=== PATIENT | male | born 1960 | race Caucasian/White ===

== ENCOUNTER 2020-02-08 05:26 | Day surgery (SDC) | payer BC ==
[~2020-02-08] VITALS: Ht 182.9 cm; Wt 75.0 kg
[2020-02-08 06:35] VITALS: BP 132/93; PULSE 67; TEMP 98.9
[2020-02-08 10:10] VITALS: BP 152/79; PULSE 72; TEMP 97.9
--- NOTE | 2020-02-08 10:10 | NUR ---
Patient arrives back from PACU alert, denies nausea, reports pain 1/10 across abdomen. Patient monitor applied, vitals stable. Patient has threen incisions across upper abdomen that are clean/dry/intact. Patient given coffee and muffin, and resting comfortably on cart.
[2020-02-08 10:25] VITALS: BP 141/71; PULSE 78
--- NOTE | 2020-02-08 10:30 | NUR ---
Patient reports no change in pain level, denies wanting any pain medication. Denies nausea. Vitals stable. Patient given another cup of coffee and muffin.
[2020-02-08 10:40] VITALS: BP 137/76; PULSE 67
[2020-02-08 10:55] VITALS: BP 145/91; PULSE 76
--- NOTE | 2020-02-08 11:00 | NUR ---
Patient reports he feels great, and is ready to go home whenever he can.
--- NOTE | 2020-02-08 11:15 | NUR ---
Dismissal instructions gone over with patient. Patient voices understanding, and all questions answered.
--- NOTE | 2020-02-08 11:25 | NUR ---
Patient discharged to private vehicle at patient enterance via wheelchair. Patient's spouse is driving vehicle. Patient and spouse leave thanking staff for services.
== END 2020-02-08 11:25 | disposition home or self-care (01) ==
LOC: SDCO 05:26
DX: K40.20 Bilateral inguinal hernia, without obstruction or gangrene, not specified as recurrent (principal); I10 Essential (primary) hypertension; E78.00 Pure hypercholesterolemia, unspecified; Z80.8 Family history of malignant neoplasm of other organs or systems
CPT/HCPCS: C1781; J0690; J1100; J1170; J1885; J2405; J2704; J3010; J7120